=== PATIENT | female | born 1950 | race Caucasian/White ===

== ENCOUNTER 2018-04-30 10:39 | Emergency (ER) | payer MEDICARE, MEDICAID ==
[~2018-04-30] VITALS: Ht 165.1 cm; Wt 119.5 kg
[~2018-04-30 10:39] MED LIST: CHOL100010 PO; DEC4T PO; DEXL60CA3 PO; DOCU-274 PO; FLUO20CA39 PO; HYDR-3973 PO; LEVA15HF4 IH; LORA1TAB PO; LOSA1TAB3 PO; NITR0.4T51 SL; QUET-1 PO; ZOF4T PO
[2018-04-30 11:08] VITALS: BP 127/80
[2018-04-30] MEDS ORDERED: HYDROcodone/acetaminophen 5mg/325mg tablet PO ONE (11:40)
[2018-04-30] MEDS ORDERED: ketorolac trometh inj. 60 MG/2 ML VIAL IM ONE (11:40)
[2018-04-30] MEDS ORDERED: LIDOcaine 5% patch TP ONE (11:40)
[2018-04-30] MEDS ORDERED: ondansetron 4mg rapidly disintigrating tab PO ONE (11:40)
[2018-04-30] MEDS ORDERED: orphenadrine citrate 60mg/2ml inj. IM ONE (11:40)
[2018-04-30] MEDS ORDERED: HYDR-3965 PO (11:50)
[2018-04-30] MEDS ORDERED: CYCL-1 PO (11:50)
[2018-04-30] MEDS ORDERED: LIDO700A32 TOP (11:51)
== END 2018-04-30 12:26 | disposition home or self-care (01) ==
LOC: ER 10:40
DX: M54.2 Cervicalgia (principal); I48.91 Unspecified atrial fibrillation; J44.9 Chronic obstructive pulmonary disease, unspecified; K21.9 Gastro-esophageal reflux disease without esophagitis; Z85.3 Personal history of malignant neoplasm of breast; Z98.890 Other specified postprocedural states; Z88.5 Allergy status to narcotic agent; Z88.2 Allergy status to sulfonamides; Z79.899 Other long term (current) drug therapy
CPT/HCPCS: 20552; 93005; 96372; 99284; J1885; J2360

== ENCOUNTER 2018-06-07 22:06 | Inpatient (IN) | payer MEDICARE, MEDICAID ==
[~2018-06-07] VITALS: Ht 317.5 cm; Wt 116.8 kg
[~2018-06-07 22:06] MED LIST changes: +CYCL-1 PO; +LIDO700A32 TOP
[2018-06-07 22:40] LABS: BASOPHILS # (AUTO) 0.1 X10'3 (0-0.2); BASOPHILS % (AUTO) 0.5 % (0-1); EOSINOPHILS % (AUTO) 0.4 % (0-6); HEMATOCRIT 35.9 % (35.0-45.0); HEMOGLOBIN 11.4 g/dl (12.0-16.0); LYMPHOCYTES # (AUTO) 0.8 X10'3 (1.1-4.8); LYMPHOCYTES % (AUTO) 8.2 % (21-51); MEAN CORPUSCULAR HEMOGLOBIN 24.4 PG (27.0-31.0); MEAN CORPUSCULAR HGB CONC 31.9 % (33.0-36.5); MEAN CORPUSCULAR VOLUME 76.4 FL (78-98); MEAN PLATELET VOLUME 9.7 FL (7.4-10.4); MONOCYTES # (AUTO) 0.5 X10'3 (0-0.9); MONOCYTES % (AUTO) 4.8 % (2-12); NEUTROPHILS # (AUTO) 8.3 X10'3 (1.8-7.7); NEUTROPHILS % (AUTO) 86.1 % (42-75); PLATELET COUNT 164 X10'3 (140-440); RED BLOOD COUNT 4.69 X10'6 (4.20-5.60); RED CELL DISTRIBUTION WIDTH 20.3 % (11.5-14.5); WHITE BLOOD COUNT 9.6 X10'3 (4.5-11.0)
[2018-06-07 22:54] LABS: INR 1.3 INR; PARTIAL THROMBOPLASTIN TIME 35 SECONDS (22-32); PROTHROMBIN TIME 12.7 SECONDS (9.0-12.0)
[2018-06-07 22:55] LABS: ALANINE AMINOTRANSFERASE 44 U/L (12-78); ALBUMIN 3.4 G/DL (3.4-5.0); ALBUMIN/GLOBULIN RATIO 0.9 (1.1-1.5); ALKALINE PHOSPHATASE 87 IU/L (46-116); ANION GAP 10 (8-16); ASPARTATE AMINO TRANSFERASE 36 U/L (10-37); BILIRUBIN,TOTAL 0.8 MG/DL (0.1-1.0); BLOOD UREA NITROGEN 12 MG/DL (7-18); BUN/CREATININE RATIO 16.4 (6.6-38.0); CALCIUM 8.9 MG/DL (8.5-10.1); CHLORIDE 102 MMOL/L (99-107); CREATININE 0.73 MG/DL (0.40-0.90); GLUCOSE 123 MG/DL (70-104); POTASSIUM 3.9 MMOL/L (3.5-5.1); SODIUM 138 MMOL/L (135-145); TOTAL CARBON DIOXIDE 25.6 MMOL/L (24-32); TOTAL PROTEIN 7.3 G/DL (6.4-8.2); eGFR 80 ML/MIN
[2018-06-07] MEDS ORDERED: ipratropium/albuterol 3ml nebule NEB ONE (23:05)
[2018-06-07] MEDS ORDERED: methylPREDNISolone sod succ 125mg/2ml vial IV ONE (23:05)
[2018-06-07] MEDS ORDERED: levoFLOXACIN 750MG TABLET PO ONE (23:05)
[2018-06-07] MEDS ORDERED: ondansetron/PF 4mg/2ml inj IV ONE (23:30)
[2018-06-07 23:40] LABS: CLARITY,URINE CLEAR (Clear); COLOR,URINE YELLOW (Yellow); GLUCOSE, URINE NEGATIVE (Neg); KETONES,URINE NEGATIVE (Neg); LEUKOCYTE ESTERASE ,URINE NEGATIVE (Neg); NITRITES, URINE NEGATIVE (Neg); OCCULT BLOOD,URINE TRACE-INTACT (Neg); PROTEIN,URINE NEGATIVE (Neg)
[2018-06-07 23:41] LABS: UA COLLECTION TYPE CLN CATCH MIDSTREAM
[2018-06-07 23:46] LABS: D-DIMER 0.76 MG/L FEU (0-0.50)
[2018-06-08] MEDS ORDERED: iohexol 350MG/ML 100ml bottle IV ONE
[2018-06-08 00:04] LABS: BACTERIA,URINE NONE SEEN /HPF (Neg); MUCUS STRANDS FEW /LPF (Neg); RBC,URINE 0-2 /HPF (0-2); SQUAMOUS EPITHELIAL CELL,UR FEW /LPF (FEW); WBC,URINE NONE SEEN /HPF (0-4)
[2018-06-08] MEDS ORDERED: furosemide 10 MG/1 ML 10ml inj IV ONE (02:25)
[2018-06-08] MEDS ORDERED: GABA-530 PO (03:04)
[2018-06-08] MEDS ORDERED: RIVA20TA PO (03:05)
[2018-06-08] MEDS ORDERED: METOPROLOL SUCC ER 25 MG TAB (03:06)
[2018-06-08] MEDS ORDERED: mag hydrox/Alum hydrox/simeth 30ml oral suspension PO PRN (03:30)
[2018-06-08] MEDS ORDERED: magnesium hydroxide 30ml (MOM) UD suspension PO PRN (03:30)
[2018-06-08] MEDS ORDERED: ondansetron/PF 4mg/2ml inj IV PRN (03:30)
[2018-06-08] MEDS ORDERED: HYDROcodone/acetaminophen 10/325mg tab PO PRN (03:30)
[2018-06-08] MEDS ORDERED: acetaminophen 325mg tablet PO PRN (03:30)
[2018-06-08] MEDS: HYDROcodone/acetaminophen 5mg/325mg tablet PO PRN ×2 (05:52→16:56)
--- NOTE | 2018-06-08 06:17 | NUR ---
Assumed care of patient. Patient resting in bed, 2 liters NC on, respirations even, no distress noted. Patient in street clothes, per shift leader patient refused to change into hospital gown. Patient's sleeping at bedside.
[2018-06-08] MEDS ORDERED: HYDROCHLOROTHIAZIDE PO SCH (08:00)
[2018-06-08] MEDS ORDERED: LOSARTAN PO SCH (08:00)
[2018-06-08] MEDS: HYDROchlorothiazide 12.5mg capsule PO SCH (08:17)
[2018-06-08] MEDS: gabapentin 100mg capsule PO SCH ×2 (08:17→16:55)
[2018-06-08] MEDS: losartan 50mg tablet PO SCH (08:17)
[2018-06-08] MEDS: rivaroxaban 20mg tablet PO SCH (08:18)
--- NOTE | 2018-06-08 09:30 | NUR ---
Elevator Inspector at bedside performing Echo.
--- NOTE | 2018-06-08 15:09 | NUR ---
Received report from JEREMY Jamison in ER
--- NOTE | 2018-06-08 15:31 | NUR ---
Patient arrived to PCU.
[2018-06-08 15:40] VITALS: BP 135/67
[2018-06-08] MEDS ORDERED: ipratropium/albuterol 3ml nebule NEB PRN (15:45)
[2018-06-08 18:00] VITALS: BP 124/83
--- NOTE | 2018-06-08 18:45 | NUR ---
Problems reprioritized. Patient report given, questions answered & plan of care reviewed with JEREMY Butler.
[2018-06-08] MEDS: ipratropium/albuterol 3ml nebule NEB SCH (19:33)
[2018-06-08 19:49] VITALS: BP 124/83
[2018-06-08] MEDS: lactobacillus rhamnosus 10,000 MMU CELLS/CAPSULE PO SCH (19:57)
[2018-06-08] MEDS: furosemide 20 MG/2 ML vial IV SCH (19:57)
[2018-06-08 22:00] VITALS: BP 114/68
[2018-06-09] MEDS: gabapentin 100mg capsule PO SCH ×3 (00:45→15:55)
[2018-06-09] MEDS: HYDROcodone/acetaminophen 5mg/325mg tablet PO PRN ×3 (00:48→15:56)
[2018-06-09 02:00] VITALS: BP 131/69
[2018-06-09 05:54] LABS: BASOPHILS # (AUTO) 0.1 X10'3 (0-0.2); EOSINOPHILS # (AUTO) 0.2 X10'3 (0-0.9); HEMATOCRIT 35.6 % (35.0-45.0); HEMOGLOBIN 11.6 g/dl (12.0-16.0); LYMPHOCYTES # (AUTO) 1.6 X10'3 (1.1-4.8); LYMPHOCYTES % (AUTO) 20.3 % (21-51); MEAN CORPUSCULAR HEMOGLOBIN 24.8 PG (27.0-31.0); MEAN CORPUSCULAR HGB CONC 32.5 % (33.0-36.5); MEAN CORPUSCULAR VOLUME 76.3 FL (78-98); MEAN PLATELET VOLUME 9.7 FL (7.4-10.4); MONOCYTES # (AUTO) 0.6 X10'3 (0-0.9); MONOCYTES % (AUTO) 8.3 % (2-12); NEUTROPHILS # (AUTO) 5.4 X10'3 (1.8-7.7); NEUTROPHILS % (AUTO) 68.4 % (42-75); PLATELET COUNT 162 X10'3 (140-440); RED BLOOD COUNT 4.67 X10'6 (4.20-5.60); WHITE BLOOD COUNT 7.8 X10'3 (4.5-11.0)
[2018-06-09 06:20] LABS: ALANINE AMINOTRANSFERASE 34 U/L (12-78); ALBUMIN 3.1 G/DL (3.4-5.0); ALBUMIN/GLOBULIN RATIO 0.8 (1.1-1.5); ALKALINE PHOSPHATASE 76 IU/L (46-116); ANION GAP 7 (8-16); ASPARTATE AMINO TRANSFERASE 21 U/L (10-37); BILIRUBIN,TOTAL 0.6 MG/DL (0.1-1.0); BLOOD UREA NITROGEN 22 MG/DL (7-18); BUN/CREATININE RATIO 24.4 (6.6-38.0); CALCIUM 8.9 MG/DL (8.5-10.1); CHLORIDE 102 MMOL/L (99-107); CHOL/HDL RATIO 3.5 (0.00-4.99); CHOLESTEROL 159 MG/DL (0-200); GLUCOSE 104 MG/DL (70-104); HDL CHOLESTEROL 46 MG/DL (35-60); LDL CHOLESTEROL 105 MG/DL (50-100); POTASSIUM 3.6 MMOL/L (3.5-5.1); SODIUM 141 MMOL/L (135-145); TOTAL CARBON DIOXIDE 31.8 MMOL/L (24-32); TRIGLYCERIDES 63 MG/DL (20-135); eGFR 63 ML/MIN
--- NOTE | 2018-06-09 06:40 | NUR ---
Patient in room PCU 3016. I have received report from KWADWO LUNA and had the opportunity to ask questions and assume patient care.
[2018-06-09 07:18] VITALS: BP 118/61
[2018-06-09] MEDS: ipratropium/albuterol 3ml nebule NEB SCH ×4 (07:53→20:41)
[2018-06-09] MEDS: losartan 50mg tablet PO SCH (08:19)
[2018-06-09] MEDS: lactobacillus rhamnosus 10,000 MMU CELLS/CAPSULE PO SCH ×2 (08:19→20:07)
[2018-06-09] MEDS: nystatin 15 GM powder TP SCH ×3 (08:19→20:15)
[2018-06-09] MEDS: furosemide 20 MG/2 ML vial IV SCH ×2 (08:19→20:03)
[2018-06-09] MEDS: HYDROchlorothiazide 12.5mg capsule PO SCH (08:20)
[2018-06-09] MEDS: rivaroxaban 20mg tablet PO SCH (08:20)
[2018-06-09] MEDS ORDERED: pneumococcal 23-VAL P-sac vacc 25 mcg/0.5ml vial IMVAC ONE (10:00)
[2018-06-09 11:00] VITALS: BP 122/61
[2018-06-09] MEDS: levoFLOXACIN 500mg tablet PO SCH (11:16)
[2018-06-09 15:00] VITALS: BP 139/63
--- NOTE | 2018-06-09 18:20 | NUR ---
Problems reprioritized. Patient report given, DUNIA NORRIS RN questions answered & plan of care reviewed with .
--- NOTE | 2018-06-09 18:30 | NUR ---
Patient in room PCU 3016. I have received report from ANN LUNA and had the opportunity to ask questions and assume patient care.
[2018-06-09 19:00] VITALS: BP 112/62
[2018-06-09] MEDS: quetiapine 100mg tablet PO SCH (20:07)
[2018-06-09 23:00] VITALS: BP 121/58
[2018-06-10] MEDS: gabapentin 100mg capsule PO SCH ×3 (01:07→16:16)
[2018-06-10 03:00] VITALS: BP 118/67
[2018-06-10 06:00] VITALS: BP 108/60
--- NOTE | 2018-06-10 06:30 | NUR ---
Problems reprioritized. Patient report given, questions answered & plan of care reviewed with ANDREW LUNA.
[2018-06-10 06:47] LABS: BASOPHILS # (AUTO) 0.1 X10'3 (0-0.2); BASOPHILS % (AUTO) 0.9 % (0-1); EOSINOPHILS # (AUTO) 0.3 X10'3 (0-0.9); EOSINOPHILS % (AUTO) 4.5 % (0-6); HEMATOCRIT 37.2 % (35.0-45.0); HEMOGLOBIN 12.1 g/dl (12.0-16.0); LYMPHOCYTES # (AUTO) 1.4 X10'3 (1.1-4.8); LYMPHOCYTES % (AUTO) 22.7 % (21-51); MEAN CORPUSCULAR HEMOGLOBIN 25.2 PG (27.0-31.0); MEAN CORPUSCULAR HGB CONC 32.6 % (33.0-36.5); MEAN CORPUSCULAR VOLUME 77.3 FL (78-98); MEAN PLATELET VOLUME 9.2 FL (7.4-10.4); MONOCYTES # (AUTO) 0.7 X10'3 (0-0.9); MONOCYTES % (AUTO) 10.7 % (2-12); NEUTROPHILS # (AUTO) 3.8 X10'3 (1.8-7.7); NEUTROPHILS % (AUTO) 61.2 % (42-75); PLATELET COUNT 178 X10'3 (140-440); WHITE BLOOD COUNT 6.3 X10'3 (4.5-11.0)
[2018-06-10 06:56] LABS: ALANINE AMINOTRANSFERASE 29 U/L (12-78); ALBUMIN/GLOBULIN RATIO 0.8 (1.1-1.5); ALKALINE PHOSPHATASE 73 IU/L (46-116); ANION GAP 8 (8-16); ASPARTATE AMINO TRANSFERASE 19 U/L (10-37); BILIRUBIN,TOTAL 0.4 MG/DL (0.1-1.0); BLOOD UREA NITROGEN 28 MG/DL (7-18); BUN/CREATININE RATIO 24.8 (6.6-38.0); CALCIUM 9.4 MG/DL (8.5-10.1); CHLORIDE 101 MMOL/L (99-107); CREATININE 1.13 MG/DL (0.40-0.90); GLUCOSE 107 MG/DL (70-104); POTASSIUM 3.9 MMOL/L (3.5-5.1); SODIUM 141 MMOL/L (135-145); TOTAL CARBON DIOXIDE 32.2 MMOL/L (24-32); TOTAL PROTEIN 6.9 G/DL (6.4-8.2); eGFR 48 ML/MIN
--- NOTE | 2018-06-10 06:58 | NUR ---
Patient in room PCU 3016. I have received report from Valeria LUNA and had the opportunity to ask questions and assume patient care.
[2018-06-10] MEDS: lactobacillus rhamnosus 10,000 MMU CELLS/CAPSULE PO SCH ×2 (08:01→19:59)
[2018-06-10] MEDS: losartan 50mg tablet PO SCH (08:02)
[2018-06-10] MEDS: rivaroxaban 20mg tablet PO SCH (08:02)
[2018-06-10] MEDS: HYDROchlorothiazide 12.5mg capsule PO SCH (08:02)
[2018-06-10] MEDS: furosemide 20 MG/2 ML vial IV SCH ×2 (08:02→19:56)
[2018-06-10] MEDS: nystatin 15 GM powder TP SCH ×3 (08:10→22:34)
[2018-06-10] MEDS: HYDROcodone/acetaminophen 5mg/325mg tablet PO PRN ×2 (08:11→20:00)
[2018-06-10] MEDS: ipratropium/albuterol 3ml nebule NEB SCH ×3 (08:19→20:04)
[2018-06-10 10:00] VITALS: BP 110/68
[2018-06-10] MEDS: levoFLOXACIN 500mg tablet PO SCH (11:08)
[2018-06-10] MEDS ORDERED: methylPREDNISolone sod succ 125mg/2ml vial IV ONE (15:40)
[2018-06-10 18:00] VITALS: BP 112/74
--- NOTE | 2018-06-10 18:08 | NUR ---
Problems reprioritized. Patient report given, questions answered & plan of care reviewed with Rosa Elena LUNA.
--- NOTE | 2018-06-10 18:37 | NUR ---
Patient in room PCU 3016. I have received report from Woody LUNA and had the opportunity to ask questions and assume patient care. Patient sitting on BSC, family at bedside.
[2018-06-10 19:50] VITALS: BP 113/93
[2018-06-10] MEDS: methylPREDNISolone sod succ 125mg/2ml vial IV SCH (19:55)
--- NOTE | 2018-06-10 20:11 | NUR ---
When assessin g patient's elevated HR she states that she has had chest pain for the last 3-4 hours. obtained EKG and sent to have MD read. Spoke with Dr. Merida notified him that patient is stable, vitals wnl, pain medication, lasix, and solumederol given. Dr. Merida states treat as chest wall pain, does not look cardiac. Will continue to monitor.
[2018-06-10 22:00] VITALS: BP 93/47
[2018-06-10] MEDS: quetiapine 100mg tablet PO SCH (22:34)
[2018-06-11] MEDS: gabapentin 100mg capsule PO SCH ×3 (00:44→16:40)
[2018-06-11 02:00] VITALS: BP 123/76
[2018-06-11] MEDS: methylPREDNISolone sod succ 125mg/2ml vial IV SCH ×3 (02:57→16:41)
[2018-06-11 05:18] LABS: BASOPHILS % (AUTO) 0 % (0-1); EOSINOPHILS % (AUTO) 0.1 % (0-6); HEMATOCRIT 41.4 % (35.0-45.0); HEMOGLOBIN 13.2 g/dl (12.0-16.0); LYMPHOCYTES # (AUTO) 0.9 X10'3 (1.1-4.8); LYMPHOCYTES % (AUTO) 9.6 % (21-51); MEAN CORPUSCULAR HEMOGLOBIN 24.7 PG (27.0-31.0); MEAN CORPUSCULAR VOLUME 77.2 FL (78-98); MEAN PLATELET VOLUME 9.3 FL (7.4-10.4); MONOCYTES # (AUTO) 0.1 X10'3 (0-0.9); MONOCYTES % (AUTO) 0.7 % (2-12); NEUTROPHILS % (AUTO) 89.6 % (42-75); PLATELET COUNT 218 X10'3 (140-440); RED BLOOD COUNT 5.36 X10'6 (4.20-5.60); RED CELL DISTRIBUTION WIDTH 18.6 % (11.5-14.5)
[2018-06-11 05:34] LABS: ALANINE AMINOTRANSFERASE 33 U/L (12-78); ALBUMIN 3.3 G/DL (3.4-5.0); ALBUMIN/GLOBULIN RATIO 0.7 (1.1-1.5); ALKALINE PHOSPHATASE 85 IU/L (46-116); ANION GAP 10 (8-16); ASPARTATE AMINO TRANSFERASE 28 U/L (10-37); BILIRUBIN,TOTAL 0.4 MG/DL (0.1-1.0); BLOOD UREA NITROGEN 30 MG/DL (7-18); BUN/CREATININE RATIO 28.6 (6.6-38.0); CALCIUM 9.8 MG/DL (8.5-10.1); CHLORIDE 99 MMOL/L (99-107); CREATININE 1.05 MG/DL (0.40-0.90); GLUCOSE 194 MG/DL (70-104); POTASSIUM 4.3 MMOL/L (3.5-5.1); SODIUM 138 MMOL/L (135-145); TOTAL CARBON DIOXIDE 28.6 MMOL/L (24-32); TOTAL PROTEIN 7.9 G/DL (6.4-8.2); eGFR 52 ML/MIN
[2018-06-11 06:00] VITALS: BP 104/61
--- NOTE | 2018-06-11 06:10 | NUR ---
Problems reprioritized. Patient report given, questions answered & plan of care reviewed with Shabana LUNA. Patient resting respirations even.
--- NOTE | 2018-06-11 06:32 | NUR ---
Patient in room PCU 3016. I have received report from Tarah LUNA and had the opportunity to ask questions and assume patient care.
[2018-06-11] MEDS: ipratropium/albuterol 3ml nebule NEB SCH ×3 (07:09→15:00)
[2018-06-11] MEDS: nystatin 15 GM powder TP SCH ×2 (08:00→13:00)
[2018-06-11] MEDS: lactobacillus rhamnosus 10,000 MMU CELLS/CAPSULE PO SCH (09:41)
[2018-06-11] MEDS: rivaroxaban 20mg tablet PO SCH (09:41)
[2018-06-11] MEDS: losartan 50mg tablet PO SCH (09:42)
[2018-06-11] MEDS: HYDROchlorothiazide 12.5mg capsule PO SCH (09:42)
[2018-06-11] MEDS: furosemide 20 MG/2 ML vial IV SCH (09:43)
[2018-06-11 11:00] VITALS: BP 108/54
[2018-06-11] MEDS: levoFLOXACIN 500mg tablet PO SCH (12:12)
[2018-06-11] MEDS: HYDROcodone/acetaminophen 5mg/325mg tablet PO PRN ×2 (12:12→16:42)
[2018-06-11 15:00] VITALS: BP 124/74
[2018-06-11 18:00] VITALS: BP 132/65
--- NOTE | 2018-06-11 18:31 | NUR ---
Patient in room PCU 3016. I have received report from Shabana LUNA and had the opportunity to ask questions and assume patient care.
--- NOTE | 2018-06-11 18:45 | NUR ---
d/c education provided, IV d/c'd cannula intact, tele monitor removed. pt left with mark cargo with all belongings.
--- NOTE | 2018-06-11 18:54 | NUR ---
Gave report to Adenike LUNA from [facility]. Report then given to Jessi LUNA who discharged pt. to facility.
== END 2018-06-11 19:30 | DRG 291 ==
LOC: ER 22:06 → ED HOLD 06-08 03:26 → PCU 3S 06-08 15:27
PROVIDERS: ADMIT Internal Medicine; ATTEND Family Medicine
PROC: B32T1ZZ Computerized Tomography (CT Scan) of Left Pulmonary Artery using Low Osmolar Contrast (ICD-10-PCS; 2018-06-08)
PROC: B3201ZZ Computerized Tomography (CT Scan) of Thoracic Aorta using Low Osmolar Contrast (ICD-10-PCS; 2018-06-08)
PROC: B32S1ZZ Computerized Tomography (CT Scan) of Right Pulmonary Artery using Low Osmolar Contrast (ICD-10-PCS; 2018-06-08)
PROC: 3E0234Z Introduction of Serum, Toxoid and Vaccine into Muscle, Percutaneous Approach (ICD-10-PCS; principal; 2018-06-09)
PROC: 3E02340 Introduction of Influenza Vaccine into Muscle, Percutaneous Approach (ICD-10-PCS; 2018-06-09)
DX: I50.23 Acute on chronic systolic (congestive) heart failure (principal); J96.20 Acute and chronic respiratory failure, unspecified whether with hypoxia or hypercapnia; J44.1 Chronic obstructive pulmonary disease with (acute) exacerbation; N17.9 Acute kidney failure, unspecified; Z68.1 Body mass index [BMI] 19.9 or less, adult; G47.33 Obstructive sleep apnea (adult) (pediatric); I48.91 Unspecified atrial fibrillation; G62.9 Polyneuropathy, unspecified; E66.01 Morbid (severe) obesity due to excess calories; K21.9 Gastro-esophageal reflux disease without esophagitis; N18.9 Chronic kidney disease, unspecified; Z23 Encounter for immunization; Z99.81 Dependence on supplemental oxygen; Z88.5 Allergy status to narcotic agent; Z88.2 Allergy status to sulfonamides; Z79.899 Other long term (current) drug therapy; Z85.118 Personal history of other malignant neoplasm of bronchus and lung; Z92.3 Personal history of irradiation; Z85.3 Personal history of malignant neoplasm of breast
CPT/HCPCS: 36415; 71045; 71275; 80053; 80061; 81001; 82948; 83036; 83880; 84484; 85025; 85379; 85610; 85730; 87070; 90732; 93005; 93306; 94640; 94760; 96374; 96375; 97161; 97530; 99285; G0378; J1940; J2405; J2930; Q9967

== ENCOUNTER 2018-08-19 23:34 | Inpatient (IN) | payer MEDICARE, MEDICAID | END 2018-08-24 14:45 | LOC: ER 23:34 → ED HOLD 08-20 07:21 → ORTHO 4S 08-20 16:15 | DX: K56.609 Unspecified intestinal obstruction, unspecified as to partial versus complete obstruction (principal); E66.01 Morbid (severe) obesity due to excess calories; I50.9 Heart failure, unspecified ==

== ENCOUNTER 2019-05-05 21:09 | Inpatient (IN) | payer MEDICARE, MEDICAID ==
[~2019-05-05] VITALS: Ht 165.1 cm; Wt 127.0 kg
[~2019-05-05 21:09] MED LIST changes: -CHOL100010 PO; -CYCL-1 PO; -DEC4T PO; -DEXL60CA3 PO; -DOCU-274 PO; +FURO-150 PO; +GABA-530 PO; -HYDR-3973 PO; +LEVO500T2 PO; -LIDO700A32 TOP; -LORA1TAB PO; +METO-395; +NAPR220C15 PO; +RIVA20TA PO; -ZOF4T PO
[2019-05-05] MEDS ORDERED: KEN0.1O TP (21:19)
[2019-05-05] MEDS ORDERED: FLUT100D2 INH (21:19)
[2019-05-05] MEDS ORDERED: SUPPORT (21:19)
[2019-05-05] MEDS ORDERED: IPRA3AMP9 IH (21:19)
[2019-05-05] MEDS ORDERED: normal saline 1000ML IV soln IVB ONE (21:20)
[2019-05-05] MEDS ORDERED: diltiazem 30mg tablet PO ONE ×2 (21:20→21:55)
[2019-05-05] MEDS ORDERED: diltiazem 5mg/ml 5ml inj. IV ONE (21:20)
--- NOTE | 2019-05-05 21:20 | NUR ---
FITZ BEING HELD AT THIS TIME PER MD DUE TO DECREASED BP 91/61
[2019-05-05] MEDS ORDERED: lactulose 20gm/30ml cup PO ONE (21:30)
[2019-05-05] MEDS ORDERED: mag hydrox/Alum hydrox/simeth 30ml oral suspension PO ONE (21:30)
[2019-05-05 21:45] LABS: BASOPHILS % (AUTO) 0.3 % (0-1); EOSINOPHILS % (AUTO) 0.5 % (0-6); HEMATOCRIT 33.9 % (35.0-45.0); HEMOGLOBIN 11.1 g/dl (12.0-16.0); LYMPHOCYTES # (AUTO) 0.7 X10'3 (1.1-4.8); LYMPHOCYTES % (AUTO) 7.6 % (21-51); MEAN CORPUSCULAR HGB CONC 32.8 g/dL (33.0-36.5); MEAN CORPUSCULAR VOLUME 76.1 FL (78-98); MEAN PLATELET VOLUME 8.8 FL (7.4-10.4); MONOCYTES # (AUTO) 0.7 X10'3 (0-0.9); MONOCYTES % (AUTO) 6.9 % (2-12); NEUTROPHILS # (AUTO) 8.1 X10'3 (1.8-7.7); NEUTROPHILS % (AUTO) 84.7 % (42-75); PLATELET COUNT 150 X10'3 (140-440); RED BLOOD COUNT 4.45 X10'6 (4.20-5.60); RED CELL DISTRIBUTION WIDTH 17.5 % (11.5-14.5); WHITE BLOOD COUNT 9.6 X10'3 (4.5-11.0)
[2019-05-05 22:04] LABS: ALANINE AMINOTRANSFERASE 30 U/L (12-78); ALBUMIN 3.5 G/DL (3.4-5.0); ALBUMIN/GLOBULIN RATIO 0.9 (1.1-1.5); ALKALINE PHOSPHATASE 90 IU/L (46-116); ANION GAP 10 (8-16); ASPARTATE AMINO TRANSFERASE 33 U/L (10-37); BLOOD UREA NITROGEN 15 MG/DL (7-18); CALCIUM 9.1 MG/DL (8.5-10.1); CHLORIDE 102 MMOL/L (99-107); GLUCOSE 114 MG/DL (70-104); POTASSIUM 3.9 MMOL/L (3.5-5.1); SODIUM 138 MMOL/L (135-145); TOTAL CARBON DIOXIDE 26.2 MMOL/L (24-32); TOTAL PROTEIN 7.2 G/DL (6.4-8.2); eGFR > 90 ML/MIN
[2019-05-05] MEDS ORDERED: LOSA25TA96 PO (22:08)
[2019-05-05] MEDS ORDERED: CefTRIAXone 2gm/D5W 50ml 50 ML IV ONE (22:10)
[2019-05-05] MEDS ORDERED: azithromycin/NS 500mg/250ml 250 ML IV ONE (22:10)
[2019-05-05 22:12] LABS: MAGNESIUM 1.8 MG/DL (1.5-2.4)
[2019-05-05] MEDS ORDERED: ondansetron/PF 4mg/2ml inj IV ONE (23:20)
[2019-05-05] MEDS ORDERED: furosemide 10 MG/1 ML 10ml inj IV ONE (23:35)
[2019-05-06] MEDS ORDERED: mag hydrox/Alum hydrox/simeth 30ml oral suspension PO PRN (00:30)
[2019-05-06] MEDS ORDERED: magnesium 2GM in 50ml NS 50 ML IV PRN (00:30)
[2019-05-06] MEDS ORDERED: potassium Cl 20 mEq SR tablet PO PRN ×2 (00:30)
[2019-05-06] MEDS ORDERED: acetaminophen 325mg tablet PO PRN (00:30)
[2019-05-06] MEDS ORDERED: magnesium Cl slow-release 64mg tablet PO PRN (00:30)
[2019-05-06] MEDS ORDERED: magnesium 4gm in 100ml NS 100 ML IV PRN (00:30)
[2019-05-06] MEDS ORDERED: magnesium hydroxide 30ml (MOM) UD suspension PO PRN (00:30)
[2019-05-06] MEDS ORDERED: potassium CL 10mEq/100ml bag 100 ML IV PRN ×2 (00:30)
[2019-05-06] MEDS ORDERED: nitroGLYCERIN 0.4mg SUBLingual tab SL PRN (00:35)
--- NOTE | 2019-05-06 00:58 | NUR ---
Patient in room . I have received report from Lali LUNA and had the opportunity to ask questions and assume patient care.
--- NOTE | 2019-05-06 01:20 | NUR ---
Patient arrived to the floor at 0120. VSS. Patient placed on tele. MRSA swab collected. Oriented to unit policies, medication times, and vital sign times. IV fluids running per MD order.
[2019-05-06] MEDS: normal saline 1000ml 1,000 ML IV SCH (01:29)
[2019-05-06 01:30] VITALS: BP 137/83
[2019-05-06 06:00] VITALS: BP 133/95
--- NOTE | 2019-05-06 06:27 | NUR ---
Problems reprioritized. Patient report given, questions answered & plan of care reviewed with Bailey LUNA.
--- NOTE | 2019-05-06 06:31 | NUR ---
Patient in room PCU 3012A. I have received report from Angelina LUNA and had the opportunity to ask questions and assume patient care.
[2019-05-06] MEDS: ondansetron/PF 4mg/2ml inj IV PRN ×2 (07:17→16:28)
[2019-05-06] MEDS: K and/or MAG REPLACEMENT MC SCH (08:00)
[2019-05-06] MEDS ORDERED: metoprolol tartrate 25mg tablet PO SCH (08:00)
[2019-05-06] MEDS ORDERED: FLUoxetine 20mg capsule PO SCH (08:00)
[2019-05-06] MEDS ORDERED: quetiapine 100mg tablet PO SCH (08:00)
[2019-05-06] MEDS ORDERED: furosemide 20MG tablet PO SCH (08:00)
[2019-05-06] MEDS: rivaroxaban 20mg tablet PO SCH (08:30)
[2019-05-06] MEDS: gabapentin 300mg capsule PO SCH ×2 (08:31→16:27)
[2019-05-06] MEDS: losartan 25mg tablet PO SCH (08:35)
--- NOTE | 2019-05-06 08:48 | NUR ---
Paged hospitalist, clare Fleming patient's complaint of 9/10 generalized pain. Also regarding patient's Seroquel dosing, normally takes at night and wants to take at night while in hospital. AM scheduled dose held. PAGER ID: [phone] MESSAGE: Bailey [phone]. RE Hayder Fish [id number]. Patient c/o 9/10 generalized pain, can I have order for pain med? Also, can we switch her Seroquel to PM dose, normally takes at night. Thanks!
[2019-05-06] MEDS: furosemide 40mg/4ml inj IV SCH ×2 (09:23→20:28)
[2019-05-06] MEDS: HYDROcodone/acetaminophen 5mg/325mg tablet PO PRN ×3 (09:23→20:28)
[2019-05-06] MEDS: metoprolol succinate 25mg (24-HOUR) SR. Tablet PO SCH (09:23)
--- NOTE | 2019-05-06 09:40 | NUR ---
Paged Dr. Laboy, hospitalist, as patient had an 8 beat run of v tach. I was in the room talking to the patient at the time, she is awake, alert, no chest pain or shortness of breath. VS: BP 138/94, HR 103, SpO2 96% on 2L/min NC, and RR 18. PAGER ID: [phone] MESSAGE: Bailey mccann [phone]. Tess Brown [id number]. Patient had 8 beat run of v tach, was awake talking during the episode, VS stable: BP 138/94, HR 108, SpO2 96%. Thanks!
[2019-05-06 11:00] VITALS: BP 130/77
--- NOTE | 2019-05-06 13:58 | NUR ---
Malnutrition Consult: Pt admit w/ difficulty breathing and afib rvr per MD note. Hx sleep apnea, CHF, COPD, and morbid obesity. Pt has no significant weakness, wt loss hx prior admits, and mild edema noted. BMI 47. Not enough PO hx at this time. Currently pt fails to meet minimum malnutrition criteria; will monitor for additional criteria this admit. Addendum: 05/06/19 at [address] Amended: Links added.
[2019-05-06 15:00] VITALS: BP 116/70
[2019-05-06 18:00] VITALS: BP 110/72
--- NOTE | 2019-05-06 18:25 | NUR ---
Patient in room PCU 3012A. I have received report from JEREMY Avalos and had the opportunity to ask questions and assume patient care. Patient denies CP, dizziness, n/v, rated paid 7/10. Receiving NS @ 20ml/hr , and receiving 2L of oxygen via NC
--- NOTE | 2019-05-06 18:25 | NUR ---
Problems reprioritized. Patient report given, questions answered & plan of care reviewed with Park LUNA. Patient awake, sitting up at bedside, family in the room with patient.
[2019-05-06] MEDS: quetiapine 100mg tablet PO SCH (21:00)
[2019-05-06 22:00] VITALS: BP 80/55
[2019-05-07] VITALS (7 sets, daily range): BP systolic 91–143; BP diastolic 51–78
[2019-05-07] MEDS: gabapentin 300mg capsule PO SCH ×3 (00:11→17:10)
--- NOTE | 2019-05-07 06:10 | NUR ---
Patient in room PCU 3012A. I have received report from Park LUNA and had the opportunity to ask questions and assume patient care. Patient is laying in bed, eyes closed, IV NS infusing @ 20mL/hr.
--- NOTE | 2019-05-07 06:13 | NUR ---
Problems reprioritized. Patient report given, questions answered & plan of care reviewed with JEREMY Avalos. Patient stable at shift change
[2019-05-07 06:14] LABS: BASOPHILS # (AUTO) 0.1 X10'3 (0-0.2); BASOPHILS % (AUTO) 0.9 % (0-1); EOSINOPHILS # (AUTO) 0.3 X10'3 (0-0.9); EOSINOPHILS % (AUTO) 4.5 % (0-6); HEMATOCRIT 32.5 % (35.0-45.0); HEMOGLOBIN 10.6 g/dl (12.0-16.0); LYMPHOCYTES # (AUTO) 1.4 X10'3 (1.1-4.8); MEAN CORPUSCULAR HGB CONC 32.7 g/dL (33.0-36.5); MEAN CORPUSCULAR VOLUME 76.3 FL (78-98); MEAN PLATELET VOLUME 9.3 FL (7.4-10.4); MONOCYTES # (AUTO) 0.5 X10'3 (0-0.9); MONOCYTES % (AUTO) 8.6 % (2-12); NEUTROPHILS # (AUTO) 3.9 X10'3 (1.8-7.7); PLATELET COUNT 154 X10'3 (140-440); RED BLOOD COUNT 4.26 X10'6 (4.20-5.60); RED CELL DISTRIBUTION WIDTH 18.1 % (11.5-14.5); WHITE BLOOD COUNT 6.2 X10'3 (4.5-11.0)
[2019-05-07 06:28] LABS: ALANINE AMINOTRANSFERASE 30 U/L (12-78); ALBUMIN/GLOBULIN RATIO 0.8 (1.1-1.5); ALKALINE PHOSPHATASE 73 IU/L (46-116); ANION GAP 8 (8-16); ASPARTATE AMINO TRANSFERASE 27 U/L (10-37); BILIRUBIN,TOTAL 0.8 MG/DL (0.1-1.0); BLOOD UREA NITROGEN 23 MG/DL (7-18); BUN/CREATININE RATIO 27.4 (6.6-38.0); CALCIUM 8.5 MG/DL (8.5-10.1); CHLORIDE 105 MMOL/L (99-107); CREATININE 0.84 MG/DL (0.40-0.90); GLUCOSE 82 MG/DL (70-104); MAGNESIUM 2.1 MG/DL (1.5-2.4); POTASSIUM 3.6 MMOL/L (3.5-5.1); SODIUM 142 MMOL/L (135-145); TOTAL CARBON DIOXIDE 28.7 MMOL/L (24-32); TOTAL PROTEIN 6.7 G/DL (6.4-8.2); eGFR 68 ML/MIN
[2019-05-07] MEDS: K and/or MAG REPLACEMENT MC SCH (08:00)
[2019-05-07] MEDS: metoprolol succinate 25mg (24-HOUR) SR. Tablet PO SCH (08:32)
[2019-05-07] MEDS: losartan 25mg tablet PO SCH (08:32)
[2019-05-07] MEDS: furosemide 40mg/4ml inj IV SCH ×2 (08:32→20:34)
[2019-05-07] MEDS: rivaroxaban 20mg tablet PO SCH (08:34)
[2019-05-07] MEDS ORDERED: FLU VACC QS2019-20 36MOS UP/PF 60 MCG/0.5 ML SYRINGE IMVAC ONE ×2 (10:00→12:00)
[2019-05-07] MEDS ORDERED: pneumococcal 23-VAL P-sac vacc 25 mcg/0.5ml vial IMVAC ONE (10:00)
[2019-05-07] MEDS: HYDROcodone/acetaminophen 5mg/325mg tablet PO PRN ×2 (12:18→17:08)
--- NOTE | 2019-05-07 13:09 | NUR ---
Patient PIV was accidentally removed when patient walked to the bathroom. Pressure applied, cannula intact. Attempted to place new PIV without success. Paged PICC RN for IV placement assistance.
--- NOTE | 2019-05-07 15:42 | NUR ---
Patient is requesting breathing treatment, has PRN orders. Paged RT requesting breathing treatment.
[2019-05-07] MEDS: ipratropium/albuterol 3ml nebule NEB PRN (16:15)
--- NOTE | 2019-05-07 17:53 | NUR ---
Vibratory Flow Piece given to patient per MD order. Pt demonstrates correct usage of equipment.
--- NOTE | 2019-05-07 18:12 | NUR ---
Patient in room PCU 3012A. I have received report from JEREMY Avalos and had the opportunity to ask questions and assume patient care.Patient is A & O X 4, denies CP, dizziness, SOB, n/v, rated pain 2/10. Pt states she recently took a [place].
--- NOTE | 2019-05-07 18:12 | NUR ---
Problems reprioritized. Patient report given, questions answered & plan of care reviewed with Park LUNA. Patient awake, alert, sitting in bed, IV NS infusing.
[2019-05-07] MEDS: quetiapine 100mg tablet PO SCH (20:34)
[2019-05-08] MEDS: normal saline 1000ml 1,000 ML IV SCH (00:35)
[2019-05-08] MEDS: gabapentin 300mg capsule PO SCH ×3 (00:35→16:15)
[2019-05-08 02:00] VITALS: BP 107/63
[2019-05-08] MEDS: HYDROcodone/acetaminophen 5mg/325mg tablet PO PRN ×2 (04:54→12:31)
[2019-05-08 06:00] VITALS: BP 129/75
--- NOTE | 2019-05-08 06:00 | NUR ---
Problems reprioritized. Patient report given, questions answered & plan of care reviewed with JEREMY Avalos. Patient stable at shift change
--- NOTE | 2019-05-08 06:05 | NUR ---
Patient in room PCU 3012A. I have received report from Park LUNA and had the opportunity to ask questions and assume patient care.
[2019-05-08] MEDS: furosemide 40mg/4ml inj IV SCH (07:19)
[2019-05-08] MEDS: metoprolol succinate 25mg (24-HOUR) SR. Tablet PO SCH (07:20)
[2019-05-08] MEDS: rivaroxaban 20mg tablet PO SCH (07:20)
[2019-05-08] MEDS: losartan 25mg tablet PO SCH (07:20)
[2019-05-08 07:26] LABS: BASOPHILS % (AUTO) 0.6 % (0-1); EOSINOPHILS # (AUTO) 0.3 X10'3 (0-0.9); EOSINOPHILS % (AUTO) 5.2 % (0-6); HEMATOCRIT 32.9 % (35.0-45.0); HEMOGLOBIN 10.9 g/dl (12.0-16.0); LYMPHOCYTES # (AUTO) 0.8 X10'3 (1.1-4.8); LYMPHOCYTES % (AUTO) 14.9 % (21-51); MEAN CORPUSCULAR HGB CONC 33.1 g/dL (33.0-36.5); MEAN CORPUSCULAR VOLUME 75.6 FL (78-98); MEAN PLATELET VOLUME 9.1 FL (7.4-10.4); MONOCYTES # (AUTO) 0.5 X10'3 (0-0.9); MONOCYTES % (AUTO) 8.8 % (2-12); NEUTROPHILS # (AUTO) 3.9 X10'3 (1.8-7.7); NEUTROPHILS % (AUTO) 70.5 % (42-75); PLATELET COUNT 158 X10'3 (140-440); RED BLOOD COUNT 4.35 X10'6 (4.20-5.60); WHITE BLOOD COUNT 5.5 X10'3 (4.5-11.0)
[2019-05-08 07:49] LABS: ALBUMIN 3.1 G/DL (3.4-5.0)
[2019-05-08 07:51] LABS: ALANINE AMINOTRANSFERASE 20 U/L (12-78); ALBUMIN/GLOBULIN RATIO 0.8 (1.1-1.5); ALKALINE PHOSPHATASE 82 IU/L (46-116); ANION GAP 8 (8-16); ASPARTATE AMINO TRANSFERASE 19 U/L (10-37); BILIRUBIN,TOTAL 0.6 MG/DL (0.1-1.0); BLOOD UREA NITROGEN 25 MG/DL (7-18); BUN/CREATININE RATIO 30.1 (6.6-38.0); CALCIUM 8.5 MG/DL (8.5-10.1); CHLORIDE 102 MMOL/L (99-107); CREATININE 0.83 MG/DL (0.40-0.90); GLUCOSE 106 MG/DL (70-104); MAGNESIUM 1.9 MG/DL (1.5-2.4); POTASSIUM 3.8 MMOL/L (3.5-5.1); SODIUM 139 MMOL/L (135-145); TOTAL CARBON DIOXIDE 29.4 MMOL/L (24-32); TOTAL PROTEIN 6.8 G/DL (6.4-8.2); eGFR 69 ML/MIN
[2019-05-08] MEDS: K and/or MAG REPLACEMENT MC SCH (08:00)
[2019-05-08 11:00] VITALS: BP 106/77
--- NOTE | 2019-05-08 12:33 | NUR ---
Patient requesting breathing treatment, paged RT.
[2019-05-08] MEDS: ipratropium/albuterol 3ml nebule NEB PRN (13:11)
--- NOTE | 2019-05-08 13:51 | NUR ---
Paged hospitalist. PAGER ID: [phone] MESSAGE: Bailey mccann [phone]. Tess Fish 3012A. Patient inquiring if she is going to be discharged today? Thank you.
[2019-05-08] MEDS ORDERED: FURO-150 PO (14:12)
[2019-05-08] MEDS ORDERED: METO100T7 PO (14:12)
[2019-05-08 15:00] VITALS: BP 133/76
--- NOTE | 2019-05-08 15:37 | NUR ---
Preparing discharge packet for patient. Patient is requesting a prescription for [place] to go home with, is experiencing a lot of rib and abdominal pain due to frequent cough.. PAGER ID: [phone] MESSAGE: Bailey mccann [phone]. Tess Brown [id number]. Patient is asking about a prescription for [place] for a few days to go home with. Is this possible? Thank you
[2019-05-08] MEDS ORDERED: HYDR-3965 PO (15:47)
--- NOTE | 2019-05-08 16:30 | NUR ---
Per MD order, by Dr. Domingo, patient is stable for discharge home. Discharge packet printed and reviewed with patient and family at bedside. Hard copy prescription of [place] sent with patient. Other prescriptions called to pharmacy of choice. Unable to make CHF follow up appointment for patient since the office is closed today. Patient and family state that they are able to easily obtain follow up with PCP and cardiology soon. Encouraged them to call on Friday when office is open to make appointment. Discharge instructions and prescriptions reviewed with patient and family, all questions answered. IV removed with cannula intact, tele monitor removed. Patient escorted via wheelchair to private vehicle to go home with family.
== END 2019-05-08 16:30 | disposition home health service (06) | DRG 308 ==
LOC: ER 21:10 → ED HOLD 05-06 00:30 → PCU 3S 05-06 01:30 → CMPBEDREQ 05-06 01:45
PROVIDERS: ADMIT Internal Medicine; ATTEND Hospitalist
PROC: 3E0234Z Introduction of Serum, Toxoid and Vaccine into Muscle, Percutaneous Approach (ICD-10-PCS; principal; 2019-05-07)
PROC: 3E02340 Introduction of Influenza Vaccine into Muscle, Percutaneous Approach (ICD-10-PCS; 2019-05-07)
DX: I48.91 Unspecified atrial fibrillation (principal); I50.43 Acute on chronic combined systolic (congestive) and diastolic (congestive) heart failure; J44.0 Chronic obstructive pulmonary disease with (acute) lower respiratory infection; B34.9 Viral infection, unspecified; G47.30 Sleep apnea, unspecified; K21.9 Gastro-esophageal reflux disease without esophagitis; I95.9 Hypotension, unspecified; I08.3 Combined rheumatic disorders of mitral, aortic and tricuspid valves; J20.9 Acute bronchitis, unspecified; R09.02 Hypoxemia; Z85.3 Personal history of malignant neoplasm of breast; Z90.710 Acquired absence of both cervix and uterus; Z23 Encounter for immunization; Z88.5 Allergy status to narcotic agent; Z88.2 Allergy status to sulfonamides; Z90.49 Acquired absence of other specified parts of digestive tract; Z98.51 Tubal ligation status
CPT/HCPCS: 36415; 71045; 80053; 83605; 83735; 83880; 84145; 84484; 85025; 87040; 87081; 87502; 87503; 90732; 93005; 93306; 94640; 94760; 96374; 96375; 97116; 97161; 97530; 99291; G0378; J0456; J0696; J1940; J2405; J3490; J7030; Q2037

== ENCOUNTER 2019-05-31 20:25 | Emergency (ER) | payer MEDICARE, MEDICAID ==
[~2019-05-31] VITALS: Ht 165.1 cm; Wt 119.5 kg
[~2019-05-31 20:25] MED LIST changes: +FLUT100D2 INH; +HYDR-3965 PO; +IPRA3AMP9 IH; +KEN0.1O TP; -LEVA15HF4 IH; -LEVO500T2 PO; -LOSA1TAB3 PO; +LOSA25TA96 PO; -METO-395; +METO100T7 PO; -NAPR220C15 PO
[2019-05-31] MEDS ORDERED: methylPREDNISolone sod succ 125mg/2ml vial IV ONE (20:35)
[2019-05-31] MEDS ORDERED: ipratropium/albuterol 3ml nebule NEB ONE (20:35)
[2019-05-31 20:54] LABS: BASOPHILS % (AUTO) 0.5 % (0-1); EOSINOPHILS # (AUTO) 0.1 X10'3 (0-0.9); EOSINOPHILS % (AUTO) 1.3 % (0-6); HEMATOCRIT 34.7 % (35.0-45.0); HEMOGLOBIN 11.3 g/dl (12.0-16.0); LYMPHOCYTES % (AUTO) 15.2 % (21-51); MEAN CORPUSCULAR HEMOGLOBIN 24.6 PG (27.0-31.0); MEAN CORPUSCULAR HGB CONC 32.5 g/dL (33.0-36.5); MEAN CORPUSCULAR VOLUME 75.7 FL (78-98); MEAN PLATELET VOLUME 8.3 FL (7.4-10.4); MONOCYTES # (AUTO) 0.4 X10'3 (0-0.9); MONOCYTES % (AUTO) 6.1 % (2-12); NEUTROPHILS % (AUTO) 76.9 % (42-75); PLATELET COUNT 127 X10'3 (140-440); RED BLOOD COUNT 4.58 X10'6 (4.20-5.60); RED CELL DISTRIBUTION WIDTH 18.5 % (11.5-14.5); WHITE BLOOD COUNT 6.5 X10'3 (4.5-11.0)
[2019-05-31 21:05] LABS: ALANINE AMINOTRANSFERASE 44 U/L (12-78); ALBUMIN 3.6 G/DL (3.4-5.0); ALKALINE PHOSPHATASE 99 IU/L (46-116); ANION GAP 7 (8-16); ASPARTATE AMINO TRANSFERASE 36 U/L (10-37); BILIRUBIN,TOTAL 0.7 MG/DL (0.1-1.0); BLOOD UREA NITROGEN 17 MG/DL (7-18); BUN/CREATININE RATIO 25.4 (6.6-38.0); CALCIUM 9.1 MG/DL (8.5-10.1); CHLORIDE 105 MMOL/L (99-107); CREATININE 0.67 MG/DL (0.40-0.90); GLUCOSE 117 MG/DL (70-104); POTASSIUM 4.4 MMOL/L (3.5-5.1); SODIUM 139 MMOL/L (135-145); TOTAL CARBON DIOXIDE 26.8 MMOL/L (24-32); TOTAL PROTEIN 7.3 G/DL (6.4-8.2); eGFR 88 ML/MIN
[2019-05-31] MEDS ORDERED: furosemide 10 MG/1 ML 10ml inj IV ONE (21:35)
[2019-05-31] MEDS ORDERED: diltiazem 30mg tablet PO ONE (21:35)
[2019-05-31] MEDS ORDERED: DILT240C90 PO (21:50)
[2019-05-31] MEDS ORDERED: HYDROcodone/acetaminophen 10/325mg tab PO ONE (21:50)
[2019-05-31] MEDS ORDERED: PRED20TA PO (21:50)
[2019-05-31] MEDS ORDERED: magnesium 2GM in 50ml NS 50 ML IV ONE (21:55)
--- NOTE | 2019-05-31 23:01 | NUR ---
PT ASSISTED 1 PERSON TO [facility] [place] TO VOID. PT REPORTS SHE IS NOT TOO WINDED NOW SITTING UP FOR THE PAST 5 MIN. PT WITH PAIN TO HER RIGHT SHOUDER (CHRONIC) AND REPORTS 6 OUT OF 10 PAIN TO HER HEAD AND ABDOMEN. [id number] AND COOPERATIVE WITH CARE.
--- NOTE | 2019-05-31 23:24 | NUR ---
1 PERSON ASSIST TO BSC. SOB INCREASES WITH MILD EXERSION WITH QUICK RECOVERY.
--- NOTE | 2019-06-01 00:07 | NUR ---
1 PERSON ASSIST TO BSC.
[2019-06-01 00:40] VITALS: BP 135/81
== END 2019-06-01 01:17 | disposition home or self-care (01) ==
LOC: ER 20:26
DX: J44.1 Chronic obstructive pulmonary disease with (acute) exacerbation (principal); I48.91 Unspecified atrial fibrillation; I10 Essential (primary) hypertension; K21.9 Gastro-esophageal reflux disease without esophagitis; Z90.49 Acquired absence of other specified parts of digestive tract; Z90.710 Acquired absence of both cervix and uterus; Z98.51 Tubal ligation status; Z98.890 Other specified postprocedural states; Z85.3 Personal history of malignant neoplasm of breast; Z88.5 Allergy status to narcotic agent; Z88.2 Allergy status to sulfonamides; Z79.899 Other long term (current) drug therapy
CPT/HCPCS: 36415; 71045; 80053; 83605; 83880; 84145; 84484; 85025; 87040; 87502; 87503; 93005; 94640; 94760; 96365; 96375; 99284; J1940; J2930; J3475

== ENCOUNTER 2019-07-22 21:24 | Emergency (ER) | payer MEDICARE, MEDICAID ==
[~2019-07-22] VITALS: Ht 165.1 cm; Wt 120.9 kg
[~2019-07-22 21:24] MED LIST changes: +DILT240C90 PO; -HYDR-3965 PO; -METO100T7 PO; +lidocaine 1%/epinephrine 1:100,000 injection 50ml vial ONE
[2019-07-23 00:03] VITALS: BP 105/83
--- NOTE | 2019-07-23 00:52 | NUR ---
cleaned sutured lac on left knee, dressed with 4x4 and coban, gave pt extra dressings, has ride home with family, pt able to transfer self from gurney to wheelchair without assist
== END 2019-07-23 00:56 | disposition home or self-care (01) ==
LOC: ER 21:25
DX: S81.012A Laceration without foreign body, left knee, initial encounter (principal); I48.91 Unspecified atrial fibrillation; J44.9 Chronic obstructive pulmonary disease, unspecified; K21.9 Gastro-esophageal reflux disease without esophagitis; Z85.3 Personal history of malignant neoplasm of breast; Z90.49 Acquired absence of other specified parts of digestive tract; Z90.710 Acquired absence of both cervix and uterus; Z98.51 Tubal ligation status; Z98.890 Other specified postprocedural states; Z88.5 Allergy status to narcotic agent; Z88.2 Allergy status to sulfonamides; Z79.01 Long term (current) use of anticoagulants; Z79.899 Other long term (current) drug therapy; W01.0XXA Fall on same level from slipping, tripping and stumbling without subsequent striking against object, initial encounter; Y93.89 Activity, other specified; Y92.89 Other specified places as the place of occurrence of the external cause; Y99.8 Other external cause status
CPT/HCPCS: 12002; 99284; 99285

== ENCOUNTER 2019-10-17 18:47 | Inpatient (IN) | payer MEDICARE, MEDICAID ==
[~2019-10-17] VITALS: Ht 165.1 cm; Wt 137.0 kg
[~2019-10-17 18:47] MED LIST changes: -lidocaine 1%/epinephrine 1:100,000 injection 50ml vial ONE
[2019-10-17] MEDS ORDERED: nitroGLYCERIN 0.4mg SUBLingual tab SL PRN ×2 (18:50→22:10)
[2019-10-17 19:17] LABS: BASOPHILS % (AUTO) 0.9 % (0-1); EOSINOPHILS # (AUTO) 0.2 X10'3 (0-0.9); EOSINOPHILS % (AUTO) 4.5 % (0-6); HEMATOCRIT 29.4 % (35.0-45.0); HEMOGLOBIN 9.1 g/dl (12.0-16.0); LYMPHOCYTES # (AUTO) 0.9 X10'3 (1.1-4.8); LYMPHOCYTES % (AUTO) 19.2 % (21-51); MEAN CORPUSCULAR HEMOGLOBIN 21.3 PG (27.0-31.0); MEAN CORPUSCULAR VOLUME 68.6 FL (78-98); MEAN PLATELET VOLUME 8.8 FL (7.4-10.4); MONOCYTES # (AUTO) 0.4 X10'3 (0-0.9); MONOCYTES % (AUTO) 8.1 % (2-12); NEUTROPHILS # (AUTO) 3.1 X10'3 (1.8-7.7); NEUTROPHILS % (AUTO) 67.3 % (42-75); PLATELET COUNT 175 X10'3 (140-440); RED BLOOD COUNT 4.29 X10'6 (4.20-5.60); RED CELL DISTRIBUTION WIDTH 19.7 % (11.5-14.5); WHITE BLOOD COUNT 4.6 X10'3 (4.5-11.0)
[2019-10-17 19:23] LABS: D-DIMER 0.57 MG/L FEU (0-0.50)
[2019-10-17 19:27] LABS: ALANINE AMINOTRANSFERASE 30 U/L (12-78); ALBUMIN 3.2 G/DL (3.4-5.0); ALBUMIN/GLOBULIN RATIO 0.9 (1.1-1.5); ALKALINE PHOSPHATASE 86 IU/L (46-116); ANION GAP 4 (8-16); ASPARTATE AMINO TRANSFERASE 25 U/L (10-37); BILIRUBIN,TOTAL 0.6 MG/DL (0.1-1.0); BLOOD UREA NITROGEN 16 MG/DL (7-18); BUN/CREATININE RATIO 21.1 (6.6-38.0); CALCIUM 8.7 MG/DL (8.5-10.1); CHLORIDE 107 MMOL/L (99-107); CREATININE 0.76 MG/DL (0.40-0.90); GLUCOSE 93 MG/DL (70-104); POTASSIUM 4.4 MMOL/L (3.5-5.1); SODIUM 141 MMOL/L (135-145); TOTAL CARBON DIOXIDE 29.6 MMOL/L (24-32); TOTAL PROTEIN 6.8 G/DL (6.4-8.2); eGFR 76 ML/MIN
--- NOTE | 2019-10-17 20:06 | NUR ---
Shmuel Joseph's Elza Called, Addendum: 10/17/19 at 2129 by ALLYN Amendment undlizette in EDM - 10/17/19 at 2131 by ALLYN Pt. Garcia staff to disscuss her medical information with her nimara
--- NOTE | 2019-10-17 20:30 | NUR ---
Pt. LUDMILA'd staff to disscuss her medical information with her niece Vicki
[2019-10-17] MEDS ORDERED: mag hydrox/Alum hydrox/simeth 30ml oral suspension PO ONE (20:50)
[2019-10-17] MEDS ORDERED: QUET300T19 PO (21:12)
[2019-10-17] MEDS ORDERED: FURO40TA4 PO (21:12)
[2019-10-17] MEDS ORDERED: DILT-94 PO (21:12)
[2019-10-17] MEDS ORDERED: nitroGLYCERIN 0.4mg SUBLingual tab SL SCH (22:05)
[2019-10-17] MEDS ORDERED: ondansetron/PF 4mg/2ml inj IV PRN (22:10)
[2019-10-17] MEDS ORDERED: magnesium 4gm in 100ml NS 100 ML IV PRN (22:10)
[2019-10-17] MEDS ORDERED: mag hydrox/Alum hydrox/simeth 30ml oral suspension PO PRN (22:10)
[2019-10-17] MEDS ORDERED: acetaminophen 325mg tablet PO PRN (22:10)
[2019-10-17] MEDS ORDERED: magnesium 2GM in 50ml NS 50 ML IV PRN (22:10)
[2019-10-17] MEDS ORDERED: potassium Cl 20 mEq SR tablet PO PRN ×2 (22:10)
[2019-10-17] MEDS ORDERED: docusate sod 100mg capsule PO PRN (22:10)
[2019-10-17] MEDS ORDERED: aminophylline 250mg/10ml inj. IV PRN (22:10)
[2019-10-17] MEDS ORDERED: potassium CL 10mEq/100ml bag 100 ML IV PRN ×2 (22:10)
[2019-10-17] MEDS ORDERED: regadenoson 0.4mg/5ml syringe IV PRN (22:10)
--- NOTE | 2019-10-17 22:53 | NUR ---
Patient in room ED 1. I have received report from Chilango LUNA and had the opportunity to ask questions and assume patient care.
[2019-10-17 23:15] VITALS: BP 158/93
[2019-10-18] VITALS (16 sets, daily range): BP systolic 124–148; BP diastolic 67–97
[2019-10-18 01:30] LABS: BASOPHILS % (AUTO) 0.8 % (0-1); EOSINOPHILS # (AUTO) 0.3 X10'3 (0-0.9); EOSINOPHILS % (AUTO) 4.5 % (0-6); HEMATOCRIT 30.6 % (35.0-45.0); HEMOGLOBIN 9.5 g/dl (12.0-16.0); LYMPHOCYTES # (AUTO) 1.3 X10'3 (1.1-4.8); LYMPHOCYTES % (AUTO) 23.1 % (21-51); MEAN CORPUSCULAR HEMOGLOBIN 21.5 PG (27.0-31.0); MEAN CORPUSCULAR VOLUME 69.2 FL (78-98); MEAN PLATELET VOLUME 8.7 FL (7.4-10.4); MONOCYTES # (AUTO) 0.4 X10'3 (0-0.9); MONOCYTES % (AUTO) 7.5 % (2-12); NEUTROPHILS # (AUTO) 3.6 X10'3 (1.8-7.7); NEUTROPHILS % (AUTO) 64.1 % (42-75); PLATELET COUNT 196 X10'3 (140-440); RED BLOOD COUNT 4.42 X10'6 (4.20-5.60); RED CELL DISTRIBUTION WIDTH 19.3 % (11.5-14.5); WHITE BLOOD COUNT 5.6 X10'3 (4.5-11.0)
[2019-10-18 01:43] LABS: ALANINE AMINOTRANSFERASE 30 U/L (12-78); ALBUMIN 3.3 G/DL (3.4-5.0); ALBUMIN/GLOBULIN RATIO 0.9 (1.1-1.5); ALKALINE PHOSPHATASE 91 IU/L (46-116); ANION GAP 7 (8-16); ASPARTATE AMINO TRANSFERASE 25 U/L (10-37); BILIRUBIN,TOTAL 0.7 MG/DL (0.1-1.0); BLOOD UREA NITROGEN 16 MG/DL (7-18); BUN/CREATININE RATIO 21.6 (6.6-38.0); CALCIUM 9.1 MG/DL (8.5-10.1); CHLORIDE 106 MMOL/L (99-107); CREATININE 0.74 MG/DL (0.40-0.90); GLUCOSE 85 MG/DL (70-104); POTASSIUM 4.2 MMOL/L (3.5-5.1); SODIUM 141 MMOL/L (135-145); TOTAL CARBON DIOXIDE 27.8 MMOL/L (24-32); eGFR 78 ML/MIN
[2019-10-18 01:45] LABS: CHOLESTEROL 133 MG/DL (0-200); HDL CHOLESTEROL 45 MG/DL (35-60); LDL CHOLESTEROL 73 MG/DL (50-100); MAGNESIUM 2.2 MG/DL (1.5-2.4); TRIGLYCERIDES 75 MG/DL (20-135)
[2019-10-18 03:24] LABS: ANISOCYTOSIS 2+; ELLIPTOCYTES FEW; MICROCYTOSIS 2+; PLATELET ESTIMATE NORMAL
[2019-10-18] MEDS: ipratropium/albuterol 3ml nebule NEB PRN ×2 (05:31→19:38)
--- NOTE | 2019-10-18 06:18 | NUR ---
Problems reprioritized. Patient report given, questions answered & plan of care reviewed with Barbi LUNA.
--- NOTE | 2019-10-18 07:18 | NUR ---
Patient in room PCU 3020. I have received report from Addy LUNA and had the opportunity to ask questions and assume patient care.
[2019-10-18] MEDS ORDERED: furosemide 40mg/4ml inj IV SCH ×2 (08:00→16:00)
[2019-10-18] MEDS: K and/or MAG REPLACEMENT MC SCH ×2 (08:00→20:00)
[2019-10-18] MEDS: diltiazem CD 120mg capsule (once-daily) PO SCH (08:02)
[2019-10-18] MEDS: FLUoxetine 20mg capsule PO SCH (08:03)
[2019-10-18] MEDS: rivaroxaban 20mg tablet PO SCH (08:03)
[2019-10-18] MEDS: losartan 25mg tablet PO SCH (08:03)
--- NOTE | 2019-10-18 13:08 | NUR ---
paged Dr. Padilla Re: Mali Fish rm [phone]. Results of Casandra scan in. Can we feed patient? Bailey [phone] Will continue to monitor.
--- NOTE | 2019-10-18 13:54 | NUR ---
New orders from Dr. Brady: Lasix 40 mg IV BID, 1.5L fluid restriction, PT eval/treat, EEG, MRI head with and without contrast, Ativan IV 1 mg for MRI.
[2019-10-18] MEDS ORDERED: iohexol 350MG/ML 100ml bottle IV ONE (14:38)
--- NOTE | 2019-10-18 16:01 | NUR ---
Paged Dr Lehman "PAGER ID: [phone] MESSAGE: [phone] Layne patient in ED was negative, so 3020 [place] is clear"
--- NOTE | 2019-10-18 18:17 | NUR ---
Problems reprioritized. Patient report given, questions answered & plan of care reviewed with Jeri LUNA. Patient vital signs are stable.
--- NOTE | 2019-10-18 18:18 | NUR ---
Problems reprioritized. Patient report given, questions answered & plan of care reviewed with JEREMY Perdomo. Patient stable at transfer of care.
--- NOTE | 2019-10-18 18:29 | NUR ---
[place] documentation: I have reviewed and agree with all interventions, assessments performed and documented by JEREMY Avalos. [place] Medication Administration: For this medication-pass time frame, all medication were reviewed, dispensed, administered and documented per hospital policy by JEREMY Avalos.
--- NOTE | 2019-10-18 18:30 | NUR ---
Patient in room PCU 3020. I have received report from Barbi LUNA and had the opportunity to ask questions and assume patient care.
[2019-10-18] MEDS ORDERED: quetiapine 100mg tablet PO SCH (21:00)
[2019-10-19 02:00] VITALS: BP 105/90
--- NOTE | 2019-10-19 02:58 | NUR ---
Third rail up for patient safety. Patient agreed to third rail.
--- NOTE | 2019-10-19 05:15 | NUR ---
[place] documentation: I have reviewed and agree with all interventions, meds given, assessments performed and documented by Mireya LUNA.
--- NOTE | 2019-10-19 06:00 | NUR ---
Problems reprioritized. Patient report given, questions answered & plan of care reviewed with Barbi RN, and Bailey LUNA [].
[2019-10-19 06:23] LABS: BASOPHILS % (AUTO) 0.5 % (0-1); EOSINOPHILS # (AUTO) 0.2 X10'3 (0-0.9); EOSINOPHILS % (AUTO) 2.3 % (0-6); HEMATOCRIT 30.8 % (35.0-45.0); HEMOGLOBIN 9.6 g/dl (12.0-16.0); LYMPHOCYTES # (AUTO) 0.8 X10'3 (1.1-4.8); LYMPHOCYTES % (AUTO) 12.4 % (21-51); MEAN CORPUSCULAR HEMOGLOBIN 21.2 PG (27.0-31.0); MEAN CORPUSCULAR HGB CONC 31.2 g/dL (33.0-36.5); MEAN PLATELET VOLUME 8.4 FL (7.4-10.4); MONOCYTES # (AUTO) 0.6 X10'3 (0-0.9); MONOCYTES % (AUTO) 8.9 % (2-12); NEUTROPHILS # (AUTO) 5.1 X10'3 (1.8-7.7); NEUTROPHILS % (AUTO) 75.9 % (42-75); PLATELET COUNT 193 X10'3 (140-440); RED BLOOD COUNT 4.53 X10'6 (4.20-5.60); RED CELL DISTRIBUTION WIDTH 19.9 % (11.5-14.5); WHITE BLOOD COUNT 6.7 X10'3 (4.5-11.0)
--- NOTE | 2019-10-19 06:29 | NUR ---
Problems reprioritized. Patient report given, questions answered & plan of care reviewed with Barbi LUNA.
--- NOTE | 2019-10-19 06:39 | NUR ---
Patient in room PCU 3020. I have received report from Melinda LUNA and had the opportunity to ask questions and assume patient care.
--- NOTE | 2019-10-19 06:40 | NUR ---
Patient in room U 3020. I have received report from JEREMY Ponce and had the opportunity to ask questions and assume patient care. Patient in bed resting comfortably. In no acute distress.
[2019-10-19 06:44] LABS: ALANINE AMINOTRANSFERASE 26 U/L (12-78); ALBUMIN 3.2 G/DL (3.4-5.0); ALBUMIN/GLOBULIN RATIO 0.9 (1.1-1.5); ALKALINE PHOSPHATASE 93 IU/L (46-116); ANION GAP 6 (8-16); ASPARTATE AMINO TRANSFERASE 20 U/L (10-37); BILIRUBIN,TOTAL 0.8 MG/DL (0.1-1.0); BLOOD UREA NITROGEN 17 MG/DL (7-18); CHLORIDE 105 MMOL/L (99-107); CREATININE 0.85 MG/DL (0.40-0.90); GLUCOSE 106 MG/DL (70-104); MAGNESIUM 2.3 MG/DL (1.5-2.4); POTASSIUM 3.8 MMOL/L (3.5-5.1); SODIUM 141 MMOL/L (135-145); TOTAL CARBON DIOXIDE 30.2 MMOL/L (24-32); TOTAL PROTEIN 6.8 G/DL (6.4-8.2); eGFR 67 ML/MIN
[2019-10-19 07:00] VITALS: BP 109/65
[2019-10-19] MEDS ORDERED: LORazepam 2 mg/ml vial IV ONE (07:00)
[2019-10-19] MEDS: K and/or MAG REPLACEMENT MC SCH (08:00)
[2019-10-19] MEDS ORDERED: furosemide 40mg/4ml inj IV SCH (08:00)
[2019-10-19] MEDS: diltiazem CD 120mg capsule (once-daily) PO SCH (08:12)
[2019-10-19] MEDS: losartan 25mg tablet PO SCH (08:13)
[2019-10-19] MEDS: FLUoxetine 20mg capsule PO SCH (08:13)
[2019-10-19] MEDS: rivaroxaban 20mg tablet PO SCH (08:13)
[2019-10-19 08:49] LABS: ANISOCYTOSIS 2+; MICROCYTOSIS 2+; PLATELET ESTIMATE NORMAL
[2019-10-19 08:50] LABS: ELLIPTOCYTES FEW; HYPOCHROMASIA 1+; POLYCHROMASIA FEW
--- NOTE | 2019-10-19 10:08 | NUR ---
Paged EGG Re: Mali Leyvaurn rm [phone]. EGG ordered. Needing stat patient id being discharged. Thank you
[2019-10-19 11:00] VITALS: BP 126/67
--- NOTE | 2019-10-19 13:30 | NUR ---
Patient stable per MD order to discharge. Vital signs stable, patient items collected and sent with patient. Tele removed, IV removed, all bands removed, with all discharge instructions reviewed with all questions answered. Medications and follow up reviewed and educated on. Patient will follow up per discharge order including mammogram and [facility] PCP. Medications were reviewed and consulted. Patient was able to understand and verbalize understandings on all instructions. Patient was escorted via wheel chair by RN, where patient was picked up by personal vehicle and family member to go home.
--- NOTE | 2019-10-19 14:35 | NUR ---
[place] documentation. I have reviewed and agree with all interventions, assessments performed and documented by JEREMY Avalos. [place] Medication Administration: For this medication-pass time frame, all medication were reviewed, dispensed, administered and documented per hospital policy by JEREMY Avalos.
--- NOTE | 2019-10-20 15:45 | NUR ---
Case Management DC follow up: Post DC status, questions/concerns
== END 2019-10-19 13:38 | disposition home health service (06) | DRG 291 ==
LOC: ER 18:47 → ED HOLD 22:06 → PCU 3S 23:05
PROVIDERS: ADMIT Family Medicine; ATTEND Family Medicine
PROC: 5A09357 Assistance with Respiratory Ventilation, Less than 24 Consecutive Hours, Continuous Positive Airway Pressure (ICD-10-PCS; principal; 2019-10-18)
PROC: 4A02XM4 Measurement of Cardiac Total Activity, External Approach (ICD-10-PCS; 2019-10-18)
PROC: 3E073KZ Introduction of Other Diagnostic Substance into Coronary Artery, Percutaneous Approach (ICD-10-PCS; 2019-10-18)
PROC: B32T1ZZ Computerized Tomography (CT Scan) of Left Pulmonary Artery using Low Osmolar Contrast (ICD-10-PCS; 2019-10-18)
PROC: B3201ZZ Computerized Tomography (CT Scan) of Thoracic Aorta using Low Osmolar Contrast (ICD-10-PCS; 2019-10-18)
PROC: B32S1ZZ Computerized Tomography (CT Scan) of Right Pulmonary Artery using Low Osmolar Contrast (ICD-10-PCS; 2019-10-18)
PROC: 4A10X4Z Monitoring of Central Nervous Electrical Activity, External Approach (ICD-10-PCS; 2019-10-19)
DX: I11.0 Hypertensive heart disease with heart failure (principal); J96.21 Acute and chronic respiratory failure with hypoxia; J44.1 Chronic obstructive pulmonary disease with (acute) exacerbation; I48.21 Permanent atrial fibrillation; Z68.43 Body mass index [BMI] 50.0-59.9, adult; I25.110 Atherosclerotic heart disease of native coronary artery with unstable angina pectoris; I50.43 Acute on chronic combined systolic (congestive) and diastolic (congestive) heart failure; E66.01 Morbid (severe) obesity due to excess calories; M19.90 Unspecified osteoarthritis, unspecified site; I35.0 Nonrheumatic aortic (valve) stenosis; G47.33 Obstructive sleep apnea (adult) (pediatric); G62.9 Polyneuropathy, unspecified; M17.0 Bilateral primary osteoarthritis of knee; N63.20 Unspecified lump in the left breast, unspecified quadrant; Z96.653 Presence of artificial knee joint, bilateral; K21.9 Gastro-esophageal reflux disease without esophagitis; D50.9 Iron deficiency anemia, unspecified; F32.9 Major depressive disorder, single episode, unspecified; Z77.22 Contact with and (suspected) exposure to environmental tobacco smoke (acute) (chronic); Z79.01 Long term (current) use of anticoagulants; Z82.5 Family history of asthma and other chronic lower respiratory diseases; Z90.710 Acquired absence of both cervix and uterus; Z91.81 History of falling; Z85.3 Personal history of malignant neoplasm of breast; Z92.21 Personal history of antineoplastic chemotherapy; Z92.3 Personal history of irradiation; Z99.81 Dependence on supplemental oxygen; Z88.5 Allergy status to narcotic agent; Z88.2 Allergy status to sulfonamides; Z88.7 Allergy status to serum and vaccine; Z90.49 Acquired absence of other specified parts of digestive tract; Z98.51 Tubal ligation status; Z79.899 Other long term (current) drug therapy
CPT/HCPCS: 36415; 71045; 71275; 78452; 80053; 80061; 83735; 83880; 84443; 84484; 85025; 85379; 85610; 87081; 93005; 93017; 93306; 94640; 94660; 94667; 94760; 95816; 97110; 97116; 97161; 97530; 99285; A9500; G0378; J1940; J2785; Q9967